=== PATIENT | female | born 1970 | race African-American/Black ===

== ENCOUNTER 2019-09-24 16:28 | Emergency (ER) | payer MEDICAID ==
[~2019-09-24] VITALS: Ht 170.2 cm; Wt 54.0 kg
[2019-09-24 16:42] VITALS: BP 120/77
[2019-09-24] MEDS ORDERED: KETOROLAC 60MG/2ML VIAL IM ONE (19:00)
[2019-09-24] MEDS ORDERED: DEXAMETHASONE 10 MG/ML VIAL PO ONE (19:00)
[2019-09-24] MEDS ORDERED: AMOXICILLIN/POTASSIUM CLAVULANATE 875/125MG TAB PO ONE (19:00)
== END 2019-09-24 19:21 | disposition home or self-care (01) ==
LOC: ER 16:28
DX: K04.7 Periapical abscess without sinus (principal)
CPT/HCPCS: 96372; 99283; J1100; J1885